=== PATIENT | female | born 1945 | race Caucasian/White ===

== ENCOUNTER 2017-09-30 16:58 | Emergency (ER) | payer MEDICARE ==
[~2017-09-30] VITALS: Ht 157.5 cm; Wt 52.5 kg
[2017-09-30] MEDS ORDERED: ASPI-621 PO (17:55)
[2017-09-30] MEDS ORDERED: PARO10TA56 PO (17:55)
[2017-09-30 18:06] LABS: HEMATOCRIT 43.9 % (34.6-47.8); WHITE BLOOD COUNT 8.9 x10^3/uL (3.4-10)
[2017-09-30 18:14] LABS: BLOOD UREA NITROGEN 20 mg/dL (7-18)
[2017-09-30 18:18] LABS: IS PT STATUS REG ER OR PRE ER? YES
[2017-09-30] MEDS ORDERED: SODIUM CHLORIDE FLUSH 10ML SYR IVF ONE (19:00)
[2017-09-30] MEDS ORDERED: SODIUM CHLORIDE 0.9% 1,000ML IVBOLUS ONE (19:00)
[2017-09-30 20:32] VITALS: BP 128/74
== END 2017-09-30 21:20 | disposition home or self-care (01) ==
LOC: ED 18:09
DX: S00.511A Abrasion of lip, initial encounter (principal); S00.212A Abrasion of left eyelid and periocular area, initial encounter; R55 Syncope and collapse; X58.XXXA Exposure to other specified factors, initial encounter; Y93.89 Activity, other specified; Y92.89 Other specified places as the place of occurrence of the external cause; Y99.9 Unspecified external cause status
CPT/HCPCS: 36415; 70450; 71010; 80048; 82040; 84484; 85025; 93005; 96360; 99285; J7030